=== PATIENT | male | born 1995 | race Hispanic/Latino ===

== ENCOUNTER 2019-10-05 12:50 | Emergency (ER) | payer OTHER, SELFPAY ==
[2019-10-05 12:51] VITALS: BP 163/95; PULSE 104; RESP 13; TEMP 36.7; O2SAT 99; BMI 27.0
[2019-10-05 12:55] VITALS: PULSE 100; RESP 18; O2SAT 98
--- NOTE | 2019-10-05 13:08 | CT_ITS ---
STUDY: CT ABDOMEN AND PELVIS WITHOUT CONTRAST REASON FOR EXAM: Male, 24 years old. Chest pain, mottled skin. ? food poisoning. RADIATION DOSAGE (If Supplied By Facility): CTDIvol = ( 8.46 ) mGy, DLP = ( 460.91 ) mGycm TECHNIQUE: Transaxial images were obtained from the dome of the diaphragm to the symphysis pubis without oral contrast, and without intravenous contrast. Sagittal and coronal images were reconstructed. Individualized dose optimization techniques were used for this CT. COMPARISON: None. FINDINGS: The visualized lung bases are unremarkable. The visualized portions of the heart are within normal limits. Normal liver. Normal gallbladder and extrahepatic biliary system. Normal spleen and splenule. Normal pancreas. Normal bilateral adrenal glands. Normal right kidney. Normal left kidney. Normal visualized stomach. Normal small intestine. Normal colon. The appendix is visualized and appears normal. There is no free fluid. There is no free air. Normal abdominal aorta. Normal inferior vena cava. Normal retroperitoneum. Normal urinary bladder. Normal abdominal wall. Normal osseous structures. CT/Abdomen/Pelvis without Cont IMPRESSION: No CT evident pathology. Electronically Signed: Juventino Roman MD at 14:00 EST , Service support ,
--- NOTE | 2019-10-05 13:08 | EKG12_ITS ---
Test Reason : CP Blood Pressure : / mmHG Vent. Rate : 099 BPM Atrial Rate : 099 BPM P-R Int : 198 ms QRS Dur : 094 ms QT Int : 336 ms P-R-T Axes : 017 095 014 degrees QTc Int : 431 ms Normal sinus rhythm Rightward axis Borderline ECG Confirmed by ALTAGRACIA CARDOSO ([id number]), hydrogen plant operations manager ALIVIA CROOKS ([id number]) on 10/07/2019 10:43:03 AM Referred By: LAURITA Confirmed By:ALTAGRACIA CARDOSO
[2019-10-05 13:20] LABS: Absolute Lymphocyte Count 1.96 X10^3/uL (0.83-4.51); Absolute Neutrophil Count 6.6 X10^3/uL (2.0-7.7); Basophil# 0.05 X10^3/uL; Basophil% 0.5 % (0-1); Eosinophils% 5.1 % (0-5); Hematocrit 48.3 % (40-54); Hemoglobin 16.6 g/dL (13.0-16.5); Lymphocyte # 1.96 X10^3/ul (4.0); Lymphocyte % 19.8 % (19-41); Mean Corp Hgb Conc 34.4 g/dL (32-36); Mean Corpuscular Hgb 28.9 pg (27.0-32.0); Mean Platelet Vol. 9.8 fl (6.2-12.0); Monocyte# 0.81 X10^3/uL; Monocyte% 8.2 % (0-10); NRBC Flagged by Analyzer 0 % (0-5); Neutrophil # 6.55 X10^3/uL (2.7-7.7); Neutrophil % 66.1 % (47-70); Platelet Count 213 K/mm3 (150-450); RBC Distribution Width CV 13.1 % (11.6-14.6); RBC Distribution Width SD 40.1 fl (35.1-43.9); Red Blood Count 5.75 M/mm3 (4.6-6.2); White Blood Count 9.9 K/mm3 (4.4-11.0)
[2019-10-05] MEDS: 0.9% Normal Saline 1,000 ML 1000 ML IV (13:20)
[2019-10-05] MEDS: 0.9% Normal Saline 1,000 ML 150 ML IV (13:20)
[2019-10-05] MEDS: Ondansetron 4 MG/2 ML Vial IV (13:20)
[2019-10-05] MEDS: fentaNYL 100 MCG/2 ML Ampul 25 MCG IV (13:20)
[2019-10-05 13:41] LABS: AST(SGOT) 56 U/L (15-37); Alanine Aminotransfer ALT/SGPT 130 U/L (16-61); Alkaline Phosphatase 74 U/L (45-117); Anion Gap 5 (5-15); BUN 13 mg/dL (7-18); BUN/Creat Ratio 12.7 RATIO (10-20); Bilirubin, Direct 0.09 mg/dL (0.00-0.30); Calcium,Total 8.1 mg/dL (8.5-10.1); Chloride 110 mmol/L (98-107); Creatinine, Serum 1.02 mg/dL (0.70-1.30); EST Glomerular Filtration Rate 94 mL/min (>60); Est Glom Filt Rate - Afr Amer 114 mL/min (>60); Estimated Creatinine Clearance 109.75 ml/min; Globulin 3.6 g/dL (2.2-4.2); Glucose 126 mg/dL (74-106); Lipase 119 U/L (73-393); Potassium 3.2 mmol/L (3.5-5.1); Protein, Total 7.6 g/dL (6.4-8.2); Sodium Level 141 mmol/L (136-145)
[2019-10-05 13:52] LABS: Lactic Acid 2.6 mmol/L (0.4-1.9)
[2019-10-05 14:20] VITALS: BP 137/82; PULSE 86; RESP 14; O2SAT 100
[2019-10-05] MEDS: Meclizine HCl 25 MG Tablet PO (16:07)
[2019-10-05 16:09] VITALS: BP 124/74; PULSE 98; RESP 18; O2SAT 98
--- NOTE | 2019-10-05 17:11 | ED.VIS.GEN ---
History of Present Illness Chief Complaint: Chest Pain Informant: Patient, Family, Friend Limited by: Language barrier Onset: Today Narrative: Patient presents via EMS with chest pain and not feeling well. Patient speaks [place] but does have a close friend who interprets well for him. 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 He returned home at 10 AM feeling ill. He apparently did eat some chicken and ate a cookie. One other person at work had some vomiting. Patient denies any new exposures to chemicals or anything at work today. He reportedly stated that his chest hurt. Past Medical History - Allergies and Home Meds Allergies/Adverse Reactions: Allergies No Known Allergies Allergy (Verified 10/05/19 12:54) Primary Care Physician: Care Physician,No Primary [Primary Care Provider] - Past Medical History: None Lives: With Family Smoking Status: Never smoker Review of Systems General: Denies: Chills, Fever Eyes: Denies: Visual changes - bilaterally ENT: Denies: Bilateral ear pain Cardiovascular: Reports: Chest pain Respiratory: Denies: Dyspnea Gastrointestinal: Denies: Vomiting, Diarrhea Musculoskeletal: Denies: Neck pain, Back pain, Extremity Pain Skin: Denies: Rash Neurological: Denies: Headache Physical Exam Vital Signs/Narrative: Vital Signs Pulse Resp BP Pulse Ox 10/05/19 16:09 98 18 124/74 H 98 10/05/19 14:20 86 14 137/82 H 100 Inital Vital Signs reviewed: Yes General: Well nourished, Well developed Head: Normocephalic, Atraumatic ENT: Moist mucous membranes Neck: Supple Cardiovascular: Regular rate, Regular rhythm Respiratory: No distress, CTA bilaterally, Chest nontender Abdomen: Soft, Tender - Epigastric tenderness palpation., Hypoactive bowel sounds. Negative for: Guarding, Rebound tenderness Skin: - - Extremities appear slightly mottled, however feel warm with good strong distal pulses. Neurological: Alert Psychological: Normal affect Diagnostic/Tx/Re-eval Impressions Abdomen/Pelvis CT 10/05/19 13:08 IMPRESSION: No CT evident pathology. Electronically Signed: Juventino Roman MD at 14:00 EST , Service support , 10/05/19 13:08 Abdomen/Pelvis without Cont [CT] Stat Laboratory Results 10/05/19 10/05/19 10/05/19 13:05 13:05 13:05 WBC 9.9 RBC 5.75 Hgb 16.6 H Hct 48.3 MCV 84.0 MCH 28.9 MCHC 34.4 RDW Std Deviation 40.1 RDW Coeff of Gloria 13.1 Plt Count 213 MPV 9.8 Immature Gran % (Auto) 0.300 Neut % (Auto) 66.1 Lymph % (Auto) 19.8 Putnam % (Auto) 8.2 Eos % (Auto) 5.1 H Baso % (Auto) 0.5 Absolute Neuts (auto) 6.6 Absolute Lymphs (auto) 1.96 Nucleated RBC % 0 Sodium 141 Potassium 3.2 L Chloride 110 H Carbon Dioxide 26.0 Anion Gap 5 BUN 13 Creatinine 1.02 Estim Creat Clear Calc 109.75 Est GFR (MDRD) Af Amer 114 Est GFR (MDRD) Non-Af 94 BUN/Creatinine Ratio 12.7 Glucose 126 H Lactic Acid 2.6 H* Calcium 8.1 L Total Bilirubin 0.40 Direct Bilirubin 0.09 AST 56 H ALT 130 H Alkaline Phosphatase 74 Troponin I Total Protein 7.6 Albumin 4.0 Globulin 3.6 Lipase 119 10/05/19 13:05 WBC RBC Hgb Hct MCV MCH MCHC RDW Std Deviation RDW Coeff of Gloria Plt Count MPV Immature Gran % (Auto) Neut % (Auto) Lymph % (Auto) [place]nam % (Auto) Eos % (Auto) Baso % (Auto) Absolute Neuts (auto) Absolute Lymphs (auto) Nucleated RBC % Sodium Potassium Chloride Carbon Dioxide Anion Gap BUN Creatinine Estim Creat Clear Calc Est GFR (MDRD) Af Amer Est GFR (MDRD) Non-Af BUN/Creatinine Ratio Glucose Lactic Acid Calcium Total Bilirubin Direct Bilirubin AST ALT Alkaline Phosphatase Troponin I < 0.015 Total Protein Albumin Globulin Lipase - Medical Decision Making Patient was given IV fluids, fentanyl, Zofran. He was observed ambulating to the restroom and back without difficulty. Work-up is unremarkable. He is noted to have distended stomach that is still full of material on his CAT scan. There is no sign obstruction. Although the patient was complaining of chest pain, when I pressed over his chest and asked if that was where his pain was located he states it was lower. It was not until I pressed over the umbilical region that he reported an area of pain. Patient was able to tolerate p.o. fluids. He then stated that he was feeling dizzy as if he was spinning. He was given a dose of Antivert and at this time feels back to his normal self. He will be given a prescription for Antivert that he can use as needed. He will be referred to local physician for follow-up. He is to return for any worsening symptoms. Information is relayed through gill box fixer at bedside and all questions are answered. ED Disposition - Plan for ED Patient: Disposition: Home or Assisted Living Diagnosis: Epigastric pain, Vertigo Instructions: EPIGASTRIC PAIN (Uncertain cause), VERTIGO, Unspecified Prescriptions: Meclizine HCl [Antivert] 25 mg PO 4X/DAY PRN PRN #20 tablet PRN Reason: Dizziness Referrals: Radha Arthur MD [STAFF PHYSICIAN] - As Needed
[2019-10-05 17:16] LABS: Reflex Lactate? Y
[2019-10-05 17:34] VITALS: BP 121/73; PULSE 89; RESP 18; O2SAT 99
== END 2019-10-05 17:36 | disposition home or self-care (01) ==
PROVIDERS: Emergency Provider Emergency Medicine
DX: R10.13 Epigastric pain (principal); R42 Dizziness and giddiness
CPT/HCPCS: 74176; 80048; 80076; 83605; 83690; 84484; 85025; 93005; 96361; 96374; 96375; 99285; J7030; A4216; J2405